=== PATIENT | female | born 1940 | race Caucasian/White ===

== ENCOUNTER → 2017-01-07 | Outpatient (CLI) | payer MEDICARE, BC ==
[~2017-01-07] MED LIST: CLON-429; ESTROGENS; LEVO50TA83; POLY17PO; XANAX; ZOLP12.52; [UNRECOGNIZED DRUG - CODE]
--- NOTE | 2017-01-07 15:06 | RADRPT ---
PROCEDURE: XR Pelvis and Hips. CLINICAL INDICATION: Pelvic pain. Bilateral hip pain. TECHNIQUE: Five views. Frontal pelvis. Frontal and lateral right hip. Frontal and lateral left hip. COMPARISON: 10/30/2014. FINDINGS: There are bilateral total hip arthroplasties. These appears satisfactory with no fracture, dislocat ion, or loosening. The soft tissues are normal. There are degenerative changes of the lower lumbar spine. There is no lytic or blastic lesion. IMPRESSION: 1. Satisfactory postoperative appearance of both hips. 2. Degenerative changes of the lower lumbar spine. RPTAT: QQ .Juvenal Reynaga MD, MD Date Time Electronically viewed and signed by .Juvenal Reynaga MD, on 01/07/2017 15:06 .R/
== END | disposition home or self-care (01) ==
LOC: HKI 08:26
PROVIDERS: ATTEND Orthopaedic Surgery
DX: Z47.89 Encounter for other orthopedic aftercare (principal); Z96.643 Presence of artificial hip joint, bilateral
CPT/HCPCS: 73523; G0463